=== PATIENT | female | born 1990 | race Caucasian/White ===

== ENCOUNTER 2016-09-20 15:50 | Emergency (ER) | payer OTHER | END 2016-09-20 16:06 | disposition home or self-care (01) | LOC: CFTX 15:50 | DX: S00.03XA Contusion of scalp, initial encounter (principal); J30.2 Other seasonal allergic rhinitis; F32.9 Major depressive disorder, single episode, unspecified; F79 Unspecified intellectual disabilities; W18.09XA Striking against other object with subsequent fall, initial encounter | CPT/HCPCS: 99283 ==